=== PATIENT | female | born 1945 | race Caucasian/White ===

== ENCOUNTER 2016-04-12 06:09 | Day surgery (SDC) | payer MEDICARE, OTHER ==
[~2016-04-12 06:09] MED LIST: IV START KIT ONE; LACTATED RINGERS 1,000 ML ONE
[2016-04-12] MEDS ORDERED: FENTANYL 100 MCG/2 ML VIAL ONE (06:55)
[2016-04-12] MEDS ORDERED: LIDOCAINE Viscous 2% 15 ML UDCUP ONE (06:55)
[2016-04-12] MEDS ORDERED: PROPOFOL 20 ML IV ONE (06:56)
[2016-04-12] MEDS ORDERED: LACTATED RINGERS 1,000 ML IV SCH (07:45)
[2016-04-12 12:09] LABS: HELICOBACTER PYLORII DETECTION NEGATIVE (NEGATIVE)
== END 2016-04-12 07:53 | disposition home or self-care (01) ==
LOC: SDC 06:09
PROVIDERS: ATTEND Surgery
PROC: 0DB98ZX Excision of Duodenum, Via Natural or Artificial Opening Endoscopic, Diagnostic (ICD-10-PCS; principal; 2016-04-12)
PROC: 0DB58ZX Excision of Esophagus, Via Natural or Artificial Opening Endoscopic, Diagnostic (ICD-10-PCS; 2016-04-12)
DX: K21.9 Gastro-esophageal reflux disease without esophagitis (principal); E78.5 Hyperlipidemia, unspecified; Z86.718 Personal history of other venous thrombosis and embolism; Z79.82 Long term (current) use of aspirin; Z88.5 Allergy status to narcotic agent; Z91.040 Latex allergy status
CPT/HCPCS: 87081; 43239; J3010; A9270; J7120